=== PATIENT | female | born 1970 | race African-American/Black ===

== ENCOUNTER 2020-09-18 08:46 | Day surgery (SDC) | payer BC ==
[2020-09-14 08:23] VITALS: BMI 34.3
[2020-09-18 11:15] VITALS: TEMP 97
[2020-09-18 11:22] VITALS: PULSE 80
[2020-09-18 11:43] VITALS: BP 134/83
== END 2020-09-18 11:43 | disposition home or self-care (01) ==
LOC: FASU-ENDO 08:46
PROVIDERS: ATTEND Internal Medicine Gastroenterology
PROC: 0DJD8ZZ Inspection of Lower Intestinal Tract, Via Natural or Artificial Opening Endoscopic (ICD-10-PCS; principal; 2020-09-18 10:35)
DX: Z12.11 Encounter for screening for malignant neoplasm of colon (principal)
CPT/HCPCS: 81025